=== PATIENT | female | born 1995 | race African-American/Black ===

== ENCOUNTER → 2023-11-05 | Outpatient (REF) | payer OTHER | LOC: M LAB REF 16:35 | PROVIDERS: ATTEND Nurse Practitioner Family | DX: R30.0 Dysuria (principal) ==

== ENCOUNTER 2024-06-09 10:50 | Emergency (ER) | payer OTHER ==
[~2024-06-09] VITALS: Ht 160 cm; Wt 72.3 kg
[2024-06-09] MEDS: IBUPROFEN 600MG TAB PO ONE (12:38)
[2024-06-09] MEDS: ONDANSETRON 4MG ORAL DISINTEGRATING TAB PO ONE (12:38)
[2024-06-09] MEDS: ACETAMINOPHEN 500 MG TAB PO ONE (12:39)
[2024-06-09] MEDS: SUMAtriptan SUCCINATE 6MG/0.5ML VIAL SC ONE (14:12)
[2024-06-09 14:20] LABS: BASO # 0.1 10^3/uL (0.0-0.2); BASO % 1.4 % (0.0-1.0); EOS # 1.1 10^3/uL (0.0-0.5); EOS % 13.5 % (0.0-3.0); HEMOGLOBIN 15.2 g/dl (12.0-15.5); LYMPH # 2.3 10^3/uL (1.5-5.0); LYMPH % 28.8 % (24.0-44.0); MEAN CORPUSCULAR HEMOGLOBIN 30.5 pg (27.0-33.0); MEAN CORPUSCULAR VOLUME 92.4 fl (80.0-96.0); MONO # 0.7 10^3/uL (0.0-0.8); MONO % 8.4 % (2.0-8.0); NEUTROPHILS # 3.9 10^3/uL (1.5-8.5); NEUTROPHILS % 47.7 % (36.0-66.0); PLATELET COUNT, AUTOMATED 296 10^3/uL (150-450); RED BLOOD COUNT 4.98 10^6/uL (4.00-5.40); WHITE BLOOD COUNT 8.1 10^3/uL (4.0-10.0)
[2024-06-09 14:25] LABS: ERYTHROCYTE SEDIMENTATION RATE 23 mm/hr (0-20)
[2024-06-09 15:42] LABS: HCG, SERUM QUALITATIVE NEGATIVE (NEGATIVE)
[2024-06-09 15:44] LABS: BLOOD UREA NITROGEN 12 MG/DL (9-23); CALCIUM LEVEL 10.1 MG/DL (8.5-10.1); CARBON DIOXIDE LEVEL 24 MMOL/L (20-31); CHLORIDE LEVEL 106 MMOL/L (98-107); GLOMERULAR FILTRATION RATE > 60.0 (>60); GLUCOSE, FASTING 86 MG/DL (60-100); MAGNESIUM LEVEL 1.9 MG/DL (1.8-2.4); POTASSIUM SERUM 4.6 MMOL/L (3.5-5.1); SODIUM LEVEL 135 MMOL/L (136-145)
[2024-06-09] MEDS ORDERED: IMIT50TA PO (15:54)
[2024-06-10] MEDS ORDERED: NITR100C3 PO (11:55)
== END 2024-06-09 17:44 | disposition home or self-care (01) ==
LOC: M ED 10:50 → MERGE 10:50 → M ED 17:44
DX: R51.9 Headache, unspecified (principal)
CPT/HCPCS: 80048; 83735; 84703; 85025; 85652; 96372; 96374; 99283; J1100; J3030

== ENCOUNTER 2024-06-10 06:59 | Emergency (ER) | payer OTHER ==
[~2024-06-10] VITALS: Ht 160 cm; Wt 72.3 kg
[~2024-06-10 06:59] MED LIST: IMIT50TA PO
[2024-06-10 09:13] LABS: BASO # 0.1 10^3/uL (0.0-0.2); BASO % 0.5 % (0.0-1.0); EOS # 0.2 10^3/uL (0.0-0.5); EOS % 1.1 % (0.0-3.0); HEMATOCRIT 45.4 % (36.0-47.0); HEMOGLOBIN 15.2 g/dl (12.0-15.5); LYMPH # 2.4 10^3/uL (1.5-5.0); LYMPH % 18.5 % (24.0-44.0); MEAN CORPUSCULAR HGB CONC 33.5 g/dl (32.0-36.5); MEAN CORPUSCULAR VOLUME 92.5 fl (80.0-96.0); MONO # 1.1 10^3/uL (0.0-0.8); MONO % 8.6 % (2.0-8.0); NEUTROPHILS # 9.2 10^3/uL (1.5-8.5); NEUTROPHILS % 70.4 % (36.0-66.0); PLATELET COUNT, AUTOMATED 338 10^3/uL (150-450); RED BLOOD COUNT 4.91 10^6/uL (4.00-5.40); WHITE BLOOD COUNT 13.1 10^3/uL (4.0-10.0)
[2024-06-10 09:35] LABS: LIPASE 33 U/L (12-53)
[2024-06-10 09:38] LABS: ALBUMIN 3.7 G/DL (3.2-5.2); ALKALINE PHOSPHATASE 46 U/L (35-104); ALT/SGPT 20 U/L (7.0-40); AST/SGOT 9 U/L (<34); BILIRUBIN,DIRECT 0.3 MG/DL (<0.4); BILIRUBIN,TOTAL 1.1 MG/DL (0.3-1.2); BLOOD UREA NITROGEN 14 MG/DL (9-23); CALCIUM LEVEL 10.2 MG/DL (8.5-10.1); CARBON DIOXIDE LEVEL 26 MMOL/L (20-31); CHLORIDE LEVEL 107 MMOL/L (98-107); CREATININE FOR GFR 0.84 MG/DL (0.55-1.30); GLOMERULAR FILTRATION RATE > 60.0 (>60); GLUCOSE, FASTING 109 MG/DL (60-100); POTASSIUM SERUM 3.9 MMOL/L (3.5-5.1); SODIUM LEVEL 138 MMOL/L (136-145); TOTAL PROTEIN 7.7 G/DL (5.7-8.2)
[2024-06-10 09:42] LABS: HCG, SERUM QUALITATIVE NEGATIVE (NEGATIVE)
[2024-06-10] MEDS ORDERED: ISOVUE-370 76% 100ML VIAL As Ordered ONE (10:25)
[2024-06-10 11:29] LABS: Trichomonas vaginalis (AMP) NOT DETECTED (NEGATIVE)
[2024-06-10] MEDS: KETOROLAC 30 MG/ML 1ML VIAL IV ONE (11:29)
[2024-06-10 11:52] LABS: GC DNA AMPLIFICATION NEGATIVE (NEGATIVE)
[2024-06-10] MEDS ORDERED: NITR100C3 PO (11:55)
== END 2024-06-10 12:44 | disposition home or self-care (01) ==
LOC: M ED 06:59 → MERGE 06:59 → M ED 12:44
DX: N39.0 Urinary tract infection, site not specified (principal); K64.8 Other hemorrhoids
CPT/HCPCS: 74177; 76830; 76856; 80048; 80076; 81001; 83690; 84703; 85025; 87086; 87661; 87810; 87850; 93976; 96374; 99284; J1885; Q9967

== ENCOUNTER 2024-12-28 12:31 | Emergency (ER) | payer OTHER ==
[~2024-12-28] VITALS: Ht 160 cm; Wt 79.2 kg
[~2024-12-28 12:31] MED LIST changes: +NITR100C3 PO
[2024-12-28 12:34] VITALS: BP 137/80; TEMP 98.4; O2SAT 100
[2024-12-28] MEDS ORDERED: GABA-1171 (12:46)
[2024-12-28] MEDS ORDERED: SERT25TA21 (12:46)
== END 2024-12-28 14:47 | disposition home or self-care (01) ==
LOC: M ED 12:31
DX: R05.9 Cough, unspecified (principal); B34.8 Other viral infections of unspecified site; G43.909 Migraine, unspecified, not intractable, without status migrainosus